=== PATIENT | male | born 1960 | race Two or more races ===

== ENCOUNTER 2024-08-18 13:05 | Emergency (ER) | payer OTHER ==
[~2024-08-18] VITALS: Ht 167.6 cm; Wt 102.1 kg
[2024-08-18 13:37] VITALS: BP 157/97; O2SAT 98
[2024-08-18] MEDS ORDERED: AVAPRO300 MG PO (13:38)
[2024-08-18] MEDS ORDERED: AMLODIPINE-OLM1 EAC2 (13:39)
[2024-08-18] MEDS ORDERED: ATORVASTATIN CA10 MG PO (13:39)
[2024-08-18] MEDS ORDERED: KETOROLAC TROMETHAMINE 60 MG VIAL IM ONE (14:00)
[2024-08-18 14:45] LABS: PH,URINE 6.5 (5.0-8.0); URINE APPEARANCE Clear; URINE BILIRRUBIN Negative (NEGATIVE); URINE BLOOD Negative; URINE COLOR Yellow; URINE GLUCOSE Negative (NEGATIVE); URINE KETONE Negative (NEGATIVE); URINE LEUKOCYTE Negative; URINE NITRATE Negative; URINE PROTEIN Negative (NEGATIVE); URINE UROBILINOGEN 0.2 E.U./dl
[2024-08-18 14:49] LABS: HEMATOCRIT 40.8 % (39.0-48.0); HEMOGLOBIN 13.9 g/dL (13-16.00); MEAN CELL VOLUME 82.6 fL (80.0-100.00); MEAN CORPUSCULAR HEMOGLOBIN 28.1 pg (27.00-32.0); PLATELET COUNT 265 K/uL (150-450); RED BLOOD COUNT 4.93 M/uL (4.00-6.00); RED CELL DISTRIBUTION WIDTH 16.4 % (11.5-14.5)
[2024-08-18 14:56] LABS: URINE BACTERIA 0 uL (0.0-1933); URINE EPITHELIAL CELLS 0.4 uL (0.0-38.8); URINE RBC 1.8 uL (0.0-20.8); URINE WBC 0.8 uL (0.0-23.2)
[2024-08-18 15:27] LABS: BILIRUBIN TOTAL 0.69 mg/dL (0.3-1.2); CALCIUM 9.5 mg/dL (8.5-10.1); CREATININE SERUM 0.81 mg/dL (0.70-1.30); GFR 95.63; GLOBULINA 4.1 G/DL (2.4-3.5); POTASSIUM 3.73 mEq/L (3.5-5.1); TOTAL PROTEIN 8.1 gm/dL (6.4-8.2)
[2024-08-18] MEDS ORDERED: INTESTINEX680 M2 PO (18:40)
== END 2024-08-18 19:03 | disposition home or self-care (01) ==
LOC: ER 13:07
PROVIDERS: General Practice
DX: R10.32 Left lower quadrant pain (principal); R10.9 Unspecified abdominal pain; I10 Essential (primary) hypertension
CPT/HCPCS: 36415; 74177; 96372; 99284; J1885; Q9965